=== PATIENT | male | born 1970 | race Caucasian/White ===

== ENCOUNTER 2020-06-23 12:26 | Emergency (ER) | payer BC ==
--- OUTSIDE RECORDS SUMMARY | 2020-06-23 12:38 | XMS REPORT | Continuity of Care Document ---
:1970 Author Organization [facility] t Address [address] [place] [address] Care Team Providers Name Role Phone Lab, Mirza Pob I Attending Clinician Unavailable Jose Luis Washburn Attending Clinician Problems Condition Condition Condition Status Onset Resolution Last Treating Co mments Source Name Details Category Date Date Treatment Clinician Date Paresthesi Problem Active 2019-10-12 M emoria a 21:34:37 l (finding) [place] Paresthesi a (finding) Active Problem 10/12/2019 [facility] Peripheral Problem Active 2019-10-12 M emoria nerve 21:34:37 l disease Brennan (disorder) Peripheral nerve disease (disorder) Active Problem 10/12/2019 [facility] Allergies, Adverse Reactions, Alerts Allergy Allergy Status Severity Reaction(s) Onset Inactive Treating Comm ents Source Name Type Date Date Clinician No Known No Known Active Memori a Medicati Medicati l on on Brennan More s s Social History Social Habit Start Date Stop Date Quantity Comments Source Social History 2019-04-24 2019-04-24 Anitra bernal 13:03:33 13:03:33 Medications Ordered Filled Start Stop Current Ordering Indication Dosage Frequency Signature Comments Components Source Medication Medication Date Date Medication? Clinician (SIG) Name Name amitriptyli 2018-07 Yes 20 mg = 2 M emoria ne 10 mg 0-08 tab, PO, l oral tablet 14:03: Bedtime, Krish Amin 22 60 tab, 2 Refill(s), Pharmacy: [id number] amitriptyli Yes 10 mg = 1 M emoria ne 10 mg 9-26 tab, PO, l oral tablet 21:20: Bedtime, # Brennan 00 30 tab, 1 Refill(s), Pharmacy: [id number] pregabalin 2019-0 Yes 100 mg = 1 M emoria 100 mg oral 04-12 cap, PO, l capsule 19:58: Daily, # Júnior n 00 90 cap, 0 Refill(s) Naltrexone 2019-0 Yes 1.5 mg, Viraj jacob - Daily, 0 l 19:58: Refill(s) Brennan 00 Vital Signs Vital Name Observation Time Observation Value Comments Source Systolic (mm Hg) 2019-05-18 19:05:00 Viraj rial Brennan Diastolic (mm Hg) 2019-05-18 19:05:00 Mem orial [place] Heart Rate 2019-05-18 19:05:00 [facility] Respitory Rate 2019-05-18 19:05:00 Memori al [place] Height 2019-05-18 19:05:00 182.88 cm [facility] Weight 2019-05-18 19:05:00 [facility] BMI Calculated 2019-05-18 19:05:00 Memori al [place] Systolic (mm Hg) 2019-04-24 13:03:00 Viraj rial [place] Diastolic (mm Hg) 2019-04-24 13:03:00 Mem orial [place] Heart Rate 2019-04-24 13:03:00 [facility] Respitory Rate 2019-04-24 13:03:00 Memori al [place] Height 2019-04-24 13:03:00 185.42 cm [facility] [place] Weight 2019-04-24 13:03:00 [facility] BMI Calculated 2019-04-24 13:03:00 Memori al [place] Height 2019-04-12 19:55:00 185.42 cm [facility] Weight 2019-04-12 19:55:00 [facility] [place] BMI Calculated 2019-04-12 19:55:00 Memori al Brenann Systolic (mm Hg) 2019-04-12 19:55:00 Viraj rial [place] Diastolic (mm Hg) 2019-04-12 19:55:00 Mem orial [place] Heart Rate 2019-04-12 19:55:00 [facility] [place] Respitory Rate 2019-04-12 19:55:00 Memori al [place] Procedures Procedure Date / Time Performed Performing Clinician [facility] e Procedure on back Memorial Jenn nn Encounters Start End Encounter Admission Attending Care Care Encounter Source Date/Time Date/Time Type Type Clinicians Facility Department ID 2020-01-29 2020-01-29 Laboratory Lab, Adc [facility] [id number] 08:36:51 08:56:51 Only [facility] [id number] [place] [id number] Professio [id number] nal [address] 2019-10-10 2019-10-10 Outpatient SERENA Washburn [id number] 11:45:00 11:45:00 Greg 03 Jose Luis 2019-05-18 2019-05-18 Outpatient SERENA Washburn [id number] 14:15:00 23:59:59 Greg 02 Jose uLis 2019-04-24 2019-04-24 Outpatient SERENA Washburn [id number] 08:15:00 23:59:59 Greg Jose Luis 2019-04-12 2019-04-12 Outpatient SERENA Washburn [id number] 15:15:00 23:59:59 Greg 00 Jose Luis Results This patient has no known results.
--- OUTSIDE RECORDS SUMMARY | 2020-06-23 12:38 | XMS REPORT | Continuity of Care Document ---
:1970 Author Organization [facility] Care Team Providers Name Role Phone [facility] Unavailable Un available Problems Problem Status Onset Classification Date Comments Sourc e Date Reported Paresthesia Active Problem 10/12/2019 [facility] (finding) Neuro Peripheral Active Problem 10/12/2019 [facility] nerve disease Neuro (disorder) Medications Medication Details Route Status Patient Ordering Order Source Instructions Provider Date amitriptyline 10 20 mg = 2 Active Misch er mg oral tablet tab, PO, 019 Neuro Bedtime, # 60 tab, 2 Refill(s), Pharmacy: [facility] amitriptyline 10 10 mg = 1 Active Misch er mg oral tablet tab, PO, 019 Neuro Bedtime, # 30 tab, 1 Refill(s), Pharmacy: [facility] pregabalin 100 100 mg = 1 Active Mische r mg oral capsule cap, PO, 019 Neuro Daily, # 90 cap, 0 Refill(s) Naltrexone 1.5 mg, Active Mischer Daily, 0 019 Neuro Refill(s) Allergies, Adverse Reactions, Alerts Substance Category Reaction Severity Reaction Status Date Comments S ource type Reported No Known Assertion Drug Misch er Medication allergy Neuro Allergies Immunizations No Data Provided for This Section Results No Data Provided for This Section Pathology Reports No Data Provided for This Section Diagnostic Reports No Data Provided for This Section Consultation Notes No Data Provided for This Section Discharge Summaries No Data Provided for This Section History and Physicals No Data Provided for This Section Vital Signs Vital Sign Value Date Comments Source [facility]stolic [facility] 139 [facility] Diastolic (mm Hg) 94 [facility]18[facility] Ne [facility] Heart Rate 96 05/18/2019 [facility] Respitory Rate 16 05/18/2019 [facility] Height 182.88 cm 05/18/2019 [facility] Weight 100.909 05/18/2019 [facility] Neuro BMI Calculated 30.17 05/18/2019 [facility] Systolic (mm Hg) 124 [facility] Diastolic (mm Hg) 72 04/24/2019 [facility] Ne uro Heart Rate 68 04/24/2019 [facility] Neuro Respitory Rate 16 [facility] Height 185.42 cm [facility]/24/[facility] Weight 101.818 04/24/2019 [facility] BMI Calculated 29.61 04/24/2019 [facility] Height 185.42 cm 04/12/2019 [facility] Neuro Weight 102.727 04/12/2019 [facility] Neuro BMI Calculated 29.88 04/12/2019 [facility] Systolic (mm Hg) 128 04/12/2019 [facility] Juan Manuel ro Diastolic (mm Hg) 87 04/12/2019 [facility] Ne uro Heart Rate 93 04/12/2019 [facility] Neuro Respitory Rate 16 04/12/2019 [facility] Neuro Encounters Location Location Encounter Encounter Reason Attending ADM [place] Stat us Source Details Type Number For Provider Date Date Visit MNA Outpatient [id number] Greg 04/12 04/13 [facility] Neurology [facility] Neuro [place] Outpatient [id number] Greg 04/24 Active [facility] MNA Outpatient [id number] Greg 04/24 04/25 [facility] Neurology [facility] Neuro [place] Outpatient [id number] Greg 05/[address] [facility] [place] [facility] Outpatient [id number] Greg 05/18 05/19 [facility] Neurology [facility] Neuro [place] Outpatient [id number] Greg 09/17 Active [facility] MNA Ambulatory [id number] Cedric 10/09 10/09 [facility] Neurology Pre-Reg [facility] Neuro [place] Procedures Procedure Code Date Perfomer Comments Source Procedure on [id number] [facility] Neur o back Assessment and Plan No Data Provided for This Section Plan of Care No Data Provided for This Section Social History Social History Date Source Social History TypeResponse 04/24/2019 [facility] Neur o Alcohol Type Beer.1 Employment/School 2 Smoking Status Light tobacco smoker; Type: smockless to bacco; Exposure to Tobacco Smoke None; Cigarette Smoking Last 365 Days No; Reg Smoking Cessation Counseling No entered on: 05/18/19 1A few beers during the [id number] RELEASE INFO TO SAUMYA RAFAY Family History No Data Provided for This Section Advance Directives No Data Provided for This Section Functional Status No Data Provided for This Section
[2020-06-23] MEDS ORDERED: KETOROLAC 30 MG/ML INJ ONE (13:01)
[2020-06-23] MEDS ORDERED: dexAMETHasone 10 MG/ML VIAL ONE (13:01)
--- NOTE | 2020-06-23 15:05 | EDPHYS ---
Physician Documentation [facility] Name: Eric Flor Age: 49 yrs Sex: Male : 1970 Arrival Date: 06/23/2020 Time: 12:29 Bed 23 Private MD: ED Physician Christopher Simon HPI: 06/23 12:47 This 49 yrs old Male presents to ER via Ambulatory with complaints of rn Shoulder Pain. 12:47 The patient or guardian complains of pain. left shoulder. Context: resulted from an rn unknown reason, The patient reports no decreased range of motion. The patient reports no obvious deformity. Onset: The symptoms/episode began/occurred yesterday. Modifying factors: the symptoms are alleviated by remaining still, The symptoms are aggravated by movement. Associated signs and symptoms: Pertinent negatives: chest pain, neck pain, Weakness in left arm. Severity of symptoms: At their worst the symptoms were mild, in the emergency department the symptoms are unchanged. The patient has not experienced similar symptoms in the past. The patient has not recently seen a physician. Reports left shoulder pain, began yesterday, no trauma, was painting but using right arm. Reports pain left scapular region that shoots down left arm. No chest pain/sob, hurts to move left arm.. Historical: - Allergies: 12:44 No Known Allergies; zb - Home Meds: 12:44 Lyrica Oral [Active]; amitriptyline Oral [Active]; zb - PMHx: 12:44 None; zb - Immunization history:: Adult Immunizations up to date. - Social history:: Smoking status: Patient denies any tobacco usage or history of. - Family history:: not pertinent. - Hospitalizations: : No recent hospitalization is reported. ROS: 12:51 Constitutional: Negative for fever, chills, and weight loss, Eyes: Negative for injury, rn pain, redness, and discharge, ENT: Negative for injury, pain, and discharge, Neck: Negative for injury, pain, and swelling, Cardiovascular: Negative for chest pain, palpitations, and edema, Respiratory: Negative for shortness of breath, cough, wheezing, and pleuritic chest pain, Abdomen/GI: Negative for abdominal pain, nausea, vomiting, diarrhea, and constipation, Back: Negative for injury and pain, MS/Extremity: Negative for injury and deformity, Skin: Negative for injury, rash, and discoloration, Neuro: Negative for headache, weakness, numbness, tingling, and seizure. Exam: 12:51 Constitutional: This is a well developed, well nourished patient who is awake, alert, rn and in no acute distress. Head/Face: Normocephalic, atraumatic. Neck: Trachea midline, no thyromegaly or masses palpated, and no cervical lymphadenopathy. Supple, full range of motion without nuchal rigidity, or vertebral point tenderness. No Meningismus. Chest/axilla: Normal chest wall appearance and motion. Nontender with no deformity. No lesions are appreciated. Cardiovascular: Regular rate and rhythm. No pulse deficits. Respiratory: No increased work of breathing, no retractions or nasal flaring. Skin: Warm, dry with normal turgor. Normal color with no rashes, no lesions, and no evidence of cellulitis. MS/ Extremity: Pulses equal, no cyanosis. Neurovascular intact. Full, normal range of motion. Equal circumference. + reproducible pain with palpation in suprascapular muscular region. Neuro: Awake and alert, GCS 15, oriented to person, place, time, and situation. Cranial nerves II-XII grossly intact. Motor strength 5/5 in all extremities. Sensory grossly intact. 13:27 ECG was reviewed by the Attending Physician. rn Vital Signs: 12:37 BP 143 / 103; Pulse 99; Resp 18; Temp 97.8; Pulse Ox 99% on R/A; Pain 10/10; zb MDM: 12:39 Patient medically screened. rn 13:27 Differential diagnosis: tendonitis, radiculopathy, muscle spasm. Data reviewed: vital rn signs, nurses notes, EKG, and as a result, I will discharge patient. Counseling: I had a detailed discussion with the patient and/or guardian regarding: the historical points, exam findings, and any diagnostic results supporting the discharge/admit diagnosis, the need for outpatient follow up, to return to the emergency department if symptoms worsen or persist or if there are any questions or concerns that arise at home. Response to treatment: the patient's symptoms have mildly improved after treatment, and as a result, I will discharge patient. Special discussion: I discussed with the patient/guardian in detail that at this point there is no indication for admission to the hospital. It is understood, however, that if the symptoms persist or worsen the patient needs to return immediately for re-evaluation. 06/23 12:51 Order name: EKG; Complete Time: 14:47 rn 06/23 12:51 Order name: EKG - Nurse/Tech; Complete Time: 13:02 rn EC:27 Rate is 93 beats/min. Rhythm is regular. QRS Conger is Normal. MS interval is normal. QRS rn interval is normal. QT interval is normal. No Q waves. T waves are Normal. No ST changes noted. Clinical impression: NSR w/ Non-specific ST/T Changes. Interpreted by me. Reviewed by me. Administered Medications: 12:52 Drug: Decadron 10 mg Route: IM; Site: right deltoid; zb 13:47 Follow up: Response: No adverse reaction zb 12:53 Drug: TORadol 30 mg Route: IM; Site: right deltoid; zb 13:47 Follow up: Response: No adverse reaction zb Disposition: 06/23/20 13:31 Discharged to Home. Impression: Muscle spasm, Radiculopathy, cervical region. - Condition is Stable. - Discharge Instructions: Cervical Radiculopathy, Muscle Pain, Adult. - Prescriptions for Cyclobenzaprine 10 mg Oral Tablet - take 1 tablet by ORAL route every 8 hours As needed; 20 tablet. Medrol (Alexis) 4 mg Oral Tablets, Dose Pack - take 1 tablet by ORAL route as directed - follow package instructions; 1 packet. - Medication Reconciliation Form, Thank You Letter, Antibiotic Education, Prescription Opioid Use form. - Follow up: Private Physician; When: As needed; Reason: Recheck today's complaints, Re-evaluation by your physician. - Problem is new. - Symptoms have improved. Signatures: Christopher Simon MD MD rn Brown, MADIE Skaggs RN Corrections: (The following items were deleted from the chart) 13:53 13:31 06/23/2020 13:31 Discharged to Home. Impression: Muscle spasm; Radiculopathy, zb cervical region. Condition is Stable. Forms are Medication Reconciliation Form, Thank You Letter, Antibiotic Education, Prescription Opioid Use. Follow up: Private Physician; When: As needed; Reason: Recheck today's complaints, Re-evaluation by your physician. Problem is new. Symptoms have improved. rn
--- NOTE | 2020-06-23 15:05 | ER ---
Nurse's Notes [facility] Name: Eric Flor Age: 49 yrs Sex: Male : 1970 Arrival Date: 06/23/2020 Time: 12:29 Bed 23 Private MD: Diagnosis: Muscle spasm;Radiculopathy, cervical region Presentation: 06/23 12:37 Chief complaint: Patient states: Tuesday he woke and started having pain in his Left zb shoulder, recalls painting, denies trauma or fall. patient states that he took his 's hydrocodone this morning and it seem to help the pain. Coronavirus screen: At this time, the client does not indicate any symptoms associated with coronavirus-19. Ebola Screen: No symptoms or risks identified at this time. Initial Sepsis Screen: Does the patient meet any 2 criteria? No. Patient's initial sepsis screen is negative. Does the patient have a suspected source of infection? No. Patient's initial sepsis screen is negative. Risk Assessment: Do you want to hurt yourself or someone else? Patient reports no desire to harm self or others. Onset of symptoms was June 21, 2020. 12:37 Method Of Arrival: Ambulatory zb 12:37 Acuity: MAXINE 3 zb Triage Assessment: 12:54 General: Appears in no apparent distress. comfortable. Pain: Complains of pain in left zb arm and left shoulder Pain radiates to down to middle of arm Pain currently is 10 out of 10 on a pain scale. Quality of pain is described as burning, aching, Pain began 2-3 days ago. Alleviated by repositioning. 12:54 EENT: No signs and/or symptoms were reported regarding the EENT system. Neuro: Level of zb Consciousness is awake, alert, obeys commands, Oriented to person, place, time, situation. Cardiovascular: Heart tones S1 S2 Capillary refill < 3 seconds in bilateral fingers Patient's skin is warm and dry. Respiratory: Airway is patent Respiratory effort is even, unlabored, Respiratory pattern is regular, symmetrical. GI: Abdomen is flat, non-distended. : No signs and/or symptoms were reported regarding the genitourinary system. Derm: No signs and/or symptoms reported regarding the dermatologic system. Skin is intact, is healthy with good turgor, Skin is dry, Skin is pink, warm \T\ dry. normal. Musculoskeletal: Circulation, motion, and sensation intact. Range of motion: intact in all extremities. 13:21 General: Behavior is calm, cooperative. zb Historical: - Allergies: 12:44 No Known Allergies; zb - Home Meds: 12:44 Lyrica Oral [Active]; amitriptyline Oral [Active]; zb - PMHx: 12:44 None; zb - Immunization history:: Adult Immunizations up to date. - Social history:: Smoking status: Patient denies any tobacco usage or history of. - Family history:: not pertinent. - Hospitalizations: : No recent hospitalization is reported. Screenin:54 Abuse screen: Denies threats or abuse. Denies injuries from another. Nutritional zb screening: No deficits noted. Tuberculosis screening: No symptoms or risk factors identified. Fall Risk None identified. Vital Signs: 12:37 BP 143 / 103; Pulse 99; Resp 18; Temp 97.8; Pulse Ox 99% on R/A; Pain 10/10; zb ED Course: 12:29 Patient arrived in ED. ag5 12:37 Sharifa Kim, RN is Primary Nurse. zb 12:39 Christopher Simon MD is Attending Physician. rn 12:43 Triage completed. zb 13:03 Arm band placed on. jd3 13:03 EKG done, by ED staff, reviewed by hCristopher Simon MD. jd3 13:21 Patient has correct armband on for positive identification. Bed in low position. Call zb light in reach. Door closed. Noise minimized. 13:51 No provider procedures requiring assistance completed. IV discontinued. zb Administered Medications: 12:52 Drug: Decadron 10 mg Route: IM; Site: right deltoid; zb 13:47 Follow up: Response: No adverse reaction zb 12:53 Drug: TORadol 30 mg Route: IM; Site: right deltoid; zb 13:47 Follow up: Response: No adverse reaction zb Outcome: 13:31 Discharge ordered by . rn 13:52 Discharged to home ambulatory. zb 13:52 Condition: stable 13:52 Discharge instructions given to patient, Instructed on discharge instructions, follow up and referral plans. medication usage, Demonstrated understanding of instructions, follow-up care, medications, Prescriptions given X 2. 13:53 Patient left the ED. zb Signatures: Christopher Simon MD MD rn Davies, Jonathon, RN RN [email or web address] Brittany Crow ag5 Sharifa Kim RN RN zb Corrections: (The following items were deleted from the chart) 13:21 12:54 Pain: Complains of pain in left arm and left shoulder zb zb 13:32 12:37 Chief complaint: Patient states: Tuesday he woke and started having pain in his zb Left shoulder, recalls painting, denies trauma or fall zb
--- NOTE | 2020-06-24 12:05 | EKG ---
Test Date: 2020-06-23 Test Time: 12:58:46 Asphalt Spreader: SHALINI MEASUREMENT RESULTS: Intervals: Rate: 93 NC: 164 QRSD: 140 QT: 404 QTc: 502 [place]: P: 30 NC: 164 QRS: 88 T: 19 INTERPRETIVE STATEMENTS: Normal sinus rhythm Right bundle branch block Cannot rule out Inferior infarct, age undetermined Abnormal ECG No previous ECG available for comparison Electronically Signed On 06-24-20 11:52:33 [employer] SALES REPRESENTATIVE by Tom Dunaway
[2020-06-26 20:19] VITALS: BP 143/103; TEMP 97.8; O2SAT 99
== END 2020-06-23 13:53 | disposition home or self-care (01) ==
LOC: ER 12:26
DX: M62.838 Other muscle spasm (principal); M54.12 Radiculopathy, cervical region
CPT/HCPCS: 93005; 96372; 99283; J1100